=== PATIENT | female | born 1970 | race Caucasian/White ===

== ENCOUNTER → 2019-09-03 | Outpatient (CLI) | payer MEDICARE, OTHER, SELFPAY ==
[2019-09-03 14:47] LABS: BASOPHILS % (AUTO) 0.6 % (0.0-2.0); EOSINOPHILS % (AUTO) 0 % (1.0-6.0); HEMATOCRIT 43.5 % (36-46); HEMOGLOBIN 14.3 g/dL (12.0-16.0); MEAN CORPUSCULAR HEMOGLOBIN 29.5 pg (26.0-34.0); MEAN CORPUSCULAR HGB CONC 32.9 G/dL (31.0-37.0); MEAN CORPUSCULAR VOLUME 90 fL (80-100); MONOCYTES # (AUTO) 0.3 K/uL (0.1-1.0); MONOCYTES % (AUTO) 3.1 % (2.0-9.0); NEUTROPHILS # (AUTO) 6.1 K/uL (1.8-7.7); NEUTROPHILS % (AUTO) 72.3 % (40.0-70.0); PLATELET COUNT (AUTO) 201 K/uL (150-450); RED BLOOD CELL COUNT(AUTO) 4.85 MIL/uL (4.00-5.20); RED CELL DISTRIBUTION WIDTH 14.7 % (11.5-14.5)
== END | disposition home or self-care (01) ==
LOC: LABMN 11:55
PROVIDERS: ATTEND Psychiatry & Neurology Psychiatry
DX: F25.1 Schizoaffective disorder, depressive type (principal)

== ENCOUNTER → 2019-09-24 | Outpatient (CLI) | payer MEDICARE, OTHER, SELFPAY ==
[2019-09-24 18:43] LABS: BASOPHILS % (AUTO) 0.5 % (0.0-2.0); EOSINOPHILS % (AUTO) 0 % (1.0-6.0); HEMATOCRIT 40.1 % (36-46); HEMOGLOBIN 13.1 g/dL (12.0-16.0); LYMPHOCYTES % (AUTO) 16.6 % (22.0-44.0); MEAN CORPUSCULAR HEMOGLOBIN 29.8 pg (26.0-34.0); MEAN CORPUSCULAR HGB CONC 32.8 G/dL (31.0-37.0); MEAN CORPUSCULAR VOLUME 91 fL (80-100); MONOCYTES # (AUTO) 0.6 K/uL (0.1-1.0); MONOCYTES % (AUTO) 4.6 % (2.0-9.0); NEUTROPHILS # (AUTO) 9.5 K/uL (1.8-7.7); NEUTROPHILS % (AUTO) 78.3 % (40.0-70.0); PLATELET COUNT (AUTO) 223 K/uL (150-450); RED BLOOD CELL COUNT(AUTO) 4.42 MIL/uL (4.00-5.20); RED CELL DISTRIBUTION WIDTH 14.6 % (11.5-14.5)
== END | disposition home or self-care (01) ==
LOC: LABPV 11:30
PROVIDERS: ATTEND Psychiatry & Neurology Psychiatry
DX: F25.1 Schizoaffective disorder, depressive type (principal)

== ENCOUNTER → 2019-10-02 | Outpatient (CLI) | payer MEDICARE, OTHER | END | disposition home or self-care (01) | LOC: LABPV 13:52 | PROVIDERS: ATTEND Psychiatry & Neurology Psychiatry | DX: F25.0 Schizoaffective disorder, bipolar type (principal) | CPT/HCPCS: 80159 ==

== ENCOUNTER → 2019-10-23 | Outpatient (CLI) | payer MEDICARE, OTHER ==
[2019-10-23 14:00] LABS: BASOPHILS % (AUTO) 0.8 % (0.0-2.0); EOSINOPHILS % (AUTO) 0 % (1.0-6.0); HEMATOCRIT 40.8 % (36-46); HEMOGLOBIN 13.7 g/dL (12.0-16.0); LYMPHOCYTES % (AUTO) 20.6 % (22.0-44.0); MEAN CORPUSCULAR HEMOGLOBIN 30.2 pg (26.0-34.0); MEAN CORPUSCULAR HGB CONC 33.6 G/dL (31.0-37.0); MEAN CORPUSCULAR VOLUME 90 fL (80-100); MONOCYTES # (AUTO) 0.4 K/uL (0.1-1.0); NEUTROPHILS # (AUTO) 7.3 K/uL (1.8-7.7); NEUTROPHILS % (AUTO) 74.6 % (40.0-70.0); PLATELET COUNT (AUTO) 224 K/uL (150-450); RED BLOOD CELL COUNT(AUTO) 4.54 MIL/uL (4.00-5.20); RED CELL DISTRIBUTION WIDTH 13.6 % (11.5-14.5)
== END | disposition home or self-care (01) ==
LOC: LABMN 11:30
PROVIDERS: ATTEND Psychiatry & Neurology Psychiatry
DX: F25.1 Schizoaffective disorder, depressive type (principal)

== ENCOUNTER → 2019-11-19 | Outpatient (CLI) | payer MEDICARE, OTHER ==
[~2019-11-19] MED LIST: BENZ1TAB10 PO; CLOZ25TA5 PO; DEUT12TA PO; OLAN15TA18 PO; PALI234D IM; PALI6TAB15 PO
[2019-11-19 19:02] LABS: BASOPHILS % (AUTO) 0.6 % (0.0-2.0); EOSINOPHILS % (AUTO) 0 % (1.0-6.0); HEMATOCRIT 41.3 % (36-46); HEMOGLOBIN 13.9 g/dL (12.0-16.0); LYMPHOCYTES % (AUTO) 22.4 % (22.0-44.0); MEAN CORPUSCULAR HEMOGLOBIN 30.3 pg (26.0-34.0); MEAN CORPUSCULAR HGB CONC 33.6 G/dL (31.0-37.0); MEAN CORPUSCULAR VOLUME 90 fL (80-100); MONOCYTES # (AUTO) 0.4 K/uL (0.1-1.0); NEUTROPHILS # (AUTO) 6.4 K/uL (1.8-7.7); PLATELET COUNT (AUTO) 200 K/uL (150-450); RED BLOOD CELL COUNT(AUTO) 4.58 MIL/uL (4.00-5.20); RED CELL DISTRIBUTION WIDTH 14.1 % (11.5-14.5)
[2019-11-19 19:12] LABS: HEMOGLOBIN A1C 5.6 % (3.8-5.6)
== END | disposition home or self-care (01) ==
LOC: LABPV 14:36
PROVIDERS: ATTEND Psychiatry & Neurology Psychiatry
DX: F25.1 Schizoaffective disorder, depressive type (principal)
CPT/HCPCS: 80159; 82947; 83036

== ENCOUNTER 2020-01-20 10:23 | Inpatient (IN) | payer MEDICARE, MEDICAID ==
[~2020-01-20] VITALS: Ht 154.3 cm; Wt 99.1 kg
[~2020-01-20 10:23] MED LIST changes: -BENZ1TAB10 PO; +CLOZ100T31 PO; -CLOZ25TA5 PO; -DEUT12TA PO; +GABA-1201 PO; -OLAN15TA18 PO; +OMEG-135 PO; -PALI234D IM; -PALI6TAB15 PO
[2020-01-20 11:34] VITALS: BP 132/74
[2020-01-20] MEDS ORDERED: OLANZapine 5 MG RAPDIS TABLET PO PRN (12:30)
[2020-01-20] MEDS ORDERED: MAGNESIUM HYDROXIDE SUSPENSION 30 ML UDCUP PO PRN (12:30)
[2020-01-20] MEDS ORDERED: GuaiFENesin/D-METHORPHAN [SUGAR-FREE] 200-20MG/10 ML SYRUP UDCUP PO PRN (12:30)
[2020-01-20] MEDS ORDERED: ACETAMINOPHEN 325 MG TABLET PO PRN (12:30)
[2020-01-20] MEDS ORDERED: LOPERAMIDE HCL 2 MG CAPSULE PO PRN (12:30)
[2020-01-20] MEDS ORDERED: PROMETHAZINE HCL 25 MG TABLET PO PRN (12:30)
[2020-01-20] MEDS ORDERED: HydrOXYzine PAMOATE 50 MG CAPSULE PO PRN (12:30)
[2020-01-20] MEDS ORDERED: GABAPENTIN 300 MG CAPSULE PO PRN (12:30)
[2020-01-20] MEDS ORDERED: -PHARMACY VACCINE NOTE- MISC ONE (14:00)
[2020-01-20 14:14] LABS: COVID AG,FIA SOURCE NASOPHARYNGEAL
[2020-01-20] MEDS: GABAPENTIN 400 MG CAPSULE PO SCH ×2 (16:55→22:32)
[2020-01-20] MEDS: THIAMINE 100 MG TABLET PO SCH ×2 (16:55→22:32)
[2020-01-20 17:34] VITALS: BP 119/79
[2020-01-20] MEDS: ZOLPIDEM TARTRATE 10 MG TABLET PO PRN (21:50)
[2020-01-20] MEDS: CloZAPine 100 MG TABLET PO ONE (22:25)
[2020-01-20] MEDS: MIRTAZAPINE 15 MG TABLET PO SCH (22:25)
[2020-01-21 04:55] VITALS: BP 114/52
[2020-01-21 08:05] LABS: BASOPHILS % (AUTO) 0.5 % (0.0-2.0); EOSINOPHILS % (AUTO) 0 % (1.0-6.0); HEMATOCRIT 37.2 % (36-46); HEMOGLOBIN 12.5 g/dL (12.0-16.0); LYMPHOCYTES # (AUTO) 1.9 K/uL (1.0-4.8); LYMPHOCYTES % (AUTO) 23.7 % (22.0-44.0); MEAN CORPUSCULAR HGB CONC 33.6 G/dL (31.0-37.0); MEAN CORPUSCULAR VOLUME 89 fL (80-100); MONOCYTES # (AUTO) 0.4 K/uL (0.1-1.0); MONOCYTES % (AUTO) 5.6 % (2.0-9.0); NEUTROPHILS # (AUTO) 5.5 K/uL (1.8-7.7); NEUTROPHILS % (AUTO) 70.2 % (40.0-70.0); PLATELET COUNT (AUTO) 225 K/uL (150-450); RED BLOOD CELL COUNT(AUTO) 4.17 MIL/uL (4.00-5.20); RED CELL DISTRIBUTION WIDTH 14.5 % (11.5-14.5)
[2020-01-21 08:11] VITALS: BP 109/67
[2020-01-21 08:14] LABS: ALANINE AMINOTRANSFERASE 35 U/L (12-78); ALBUMIN 3.3 g/dL (3.4-5.0); ALKALINE PHOSPHATASE 88 U/L (46-116); ANION GAP 12 mmol/L (8-16); ASPARTATE AMINOTRANSFERASE 14 U/L (15-37); BILIRUBIN,TOTAL 0.4 mg/dL (0.1-1.0); CALCIUM, TOTAL 8.9 mg/dL (8.8-10.5); CARBON DIOXIDE 23 mmol/L (22-29); CHLORIDE 105 mmol/L (98-107); CHOL/HDL RATIO 3.3 (3.9-5.7); CHOLESTEROL 173 mg/dL (131-200); CREATININE 0.84 mg/dL (0.60-1.30); GLOMERULAR FILTR. RATE CALC > 60 mL/min (>60); GLUCOSE,RANDOM 93 mg/dL (70-110); HDL CHOLESTEROL 53 mg/dL (40-60); LDL CHOL (CALC.) 107 mg/dL (0-130); POTASSIUM 3.7 mmol/L (3.5-5.1); SODIUM SERUM 140 mmol/L (136-145); TOTAL PROTEIN, SERUM 6.7 g/dL (6.4-8.2); TRIGLYCERIDES 65 mg/dL (15-150); UREA NITROGEN, BLOOD 12 mg/dL (7-18)
[2020-01-21 08:55] LABS: HEMOGLOBIN A1C 5.3 % (3.8-5.6)
[2020-01-21] MEDS: OMEGA-3/DHA/EPA/FISH OIL 1,000 MG CAPSULE PO SCH (11:53)
[2020-01-21] MEDS: GABAPENTIN 400 MG CAPSULE PO SCH ×3 (11:54→16:31)
[2020-01-21] MEDS: THIAMINE 100 MG TABLET PO SCH ×2 (11:54→16:31)
[2020-01-21] MEDS: MULTIVITAMINS WITH MINERALS, THERAPEUTIC TABLET PO SCH (11:55)
[2020-01-21] MEDS: FOLIC ACID 1 MG TABLET PO SCH (11:56)
[2020-01-21 16:24] VITALS: BP 114/60
[2020-01-21] MEDS: CloZAPine 100 MG TABLET PO SCH (20:31)
[2020-01-21] MEDS: MIRTAZAPINE 15 MG TABLET PO SCH (20:31)
[2020-01-22 06:21] VITALS: BP 107/56
[2020-01-22 08:23] VITALS: BP 113/59
[2020-01-22] MEDS: OMEGA-3/DHA/EPA/FISH OIL 1,000 MG CAPSULE PO SCH (09:33)
[2020-01-22] MEDS: GABAPENTIN 400 MG CAPSULE PO SCH ×3 (09:34→17:13)
[2020-01-22] MEDS: MAG HYDROX/AL HYDROX/SIMETH ES 30 ML SUSPENSION UDCUP PO PRN (09:34)
[2020-01-22] MEDS: MULTIVITAMINS WITH MINERALS, THERAPEUTIC TABLET PO SCH (09:34)
[2020-01-22] MEDS: FOLIC ACID 1 MG TABLET PO SCH (09:34)
[2020-01-22] MEDS: THIAMINE 100 MG TABLET PO SCH ×2 (09:34→17:13)
[2020-01-22 16:48] VITALS: BP 119/57
[2020-01-22] MEDS: MIRTAZAPINE 15 MG TABLET PO SCH (20:35)
[2020-01-22] MEDS: CloZAPine 100 MG TABLET PO SCH (20:35)
[2020-01-22] MEDS: ZOLPIDEM TARTRATE 10 MG TABLET PO PRN (22:20)
[2020-01-23 00:07] VITALS: BP 122/78
[2020-01-23 08:13] VITALS: BP 119/73
[2020-01-23] MEDS: FOLIC ACID 1 MG TABLET PO SCH (09:07)
[2020-01-23] MEDS: THIAMINE 100 MG TABLET PO SCH ×2 (09:07→16:30)
[2020-01-23] MEDS: OMEGA-3/DHA/EPA/FISH OIL 1,000 MG CAPSULE PO SCH (09:08)
[2020-01-23] MEDS: GABAPENTIN 400 MG CAPSULE PO SCH ×3 (09:08→16:30)
[2020-01-23] MEDS: MULTIVITAMINS WITH MINERALS, THERAPEUTIC TABLET PO SCH (09:08)
[2020-01-23 16:35] VITALS: BP 112/64
[2020-01-23] MEDS: MIRTAZAPINE 15 MG TABLET PO SCH (20:32)
[2020-01-23] MEDS: CloZAPine 100 MG TABLET PO SCH (20:32)
[2020-01-24] VITALS: BP 116/62
[2020-01-24 08:21] VITALS: BP 113/62
[2020-01-24] MEDS: FOLIC ACID 1 MG TABLET PO SCH (08:55)
[2020-01-24] MEDS: GABAPENTIN 400 MG CAPSULE PO SCH ×2 (08:55→12:28)
[2020-01-24] MEDS: OMEGA-3/DHA/EPA/FISH OIL 1,000 MG CAPSULE PO SCH (08:55)
[2020-01-24] MEDS: THIAMINE 100 MG TABLET PO SCH ×2 (08:55→16:42)
[2020-01-24] MEDS: MULTIVITAMINS WITH MINERALS, THERAPEUTIC TABLET PO SCH (08:55)
[2020-01-24] MEDS: MAG HYDROX/AL HYDROX/SIMETH ES 30 ML SUSPENSION UDCUP PO PRN (09:32)
[2020-01-24 16:42] VITALS: BP 113/68
[2020-01-24] MEDS: GABAPENTIN 300 MG CAPSULE PO SCH (16:44)
[2020-01-24] MEDS: CloZAPine 100 MG TABLET PO SCH (20:33)
[2020-01-24] MEDS: MIRTAZAPINE 15 MG TABLET PO SCH (20:33)
[2020-01-25 05:27] VITALS: BP 110/71
[2020-01-25 08:28] VITALS: BP 114/69
[2020-01-25] MEDS: OMEGA-3/DHA/EPA/FISH OIL 1,000 MG CAPSULE PO SCH (09:47)
[2020-01-25] MEDS: FOLIC ACID 1 MG TABLET PO SCH (09:47)
[2020-01-25] MEDS: MULTIVITAMINS WITH MINERALS, THERAPEUTIC TABLET PO SCH (09:47)
[2020-01-25] MEDS: THIAMINE 100 MG TABLET PO SCH ×2 (09:48→17:10)
[2020-01-25] MEDS: GABAPENTIN 300 MG CAPSULE PO SCH ×3 (09:48→17:10)
[2020-01-25 16:25] VITALS: BP 123/60
[2020-01-25] MEDS: MIRTAZAPINE 15 MG TABLET PO SCH (21:10)
[2020-01-25] MEDS: CloZAPine 100 MG TABLET PO SCH (21:10)
[2020-01-26 01:03] VITALS: BP 118/66
[2020-01-26 08:30] VITALS: BP 115/62
[2020-01-26] MEDS: GABAPENTIN 300 MG CAPSULE PO SCH ×3 (08:57→16:50)
[2020-01-26] MEDS: FOLIC ACID 1 MG TABLET PO SCH (08:57)
[2020-01-26] MEDS: THIAMINE 100 MG TABLET PO SCH ×2 (08:57→16:50)
[2020-01-26] MEDS: OMEGA-3/DHA/EPA/FISH OIL 1,000 MG CAPSULE PO SCH (08:57)
[2020-01-26] MEDS: MULTIVITAMINS WITH MINERALS, THERAPEUTIC TABLET PO SCH (08:57)
[2020-01-26 17:20] VITALS: BP 106/70
[2020-01-26] MEDS: MIRTAZAPINE 15 MG TABLET PO SCH (20:22)
[2020-01-26] MEDS: CloZAPine 100 MG TABLET PO SCH (20:22)
[2020-01-26] MEDS: DOCUSATE SODIUM 250 MG CAPSULE PO SCH (20:22)
[2020-01-27 05:12] VITALS: BP 120/75
[2020-01-27 08:12] VITALS: BP 110/64
[2020-01-27] MEDS: THIAMINE 100 MG TABLET PO SCH ×2 (09:42→16:35)
[2020-01-27] MEDS: OMEGA-3/DHA/EPA/FISH OIL 1,000 MG CAPSULE PO SCH (09:42)
[2020-01-27] MEDS: MULTIVITAMINS WITH MINERALS, THERAPEUTIC TABLET PO SCH (09:42)
[2020-01-27] MEDS: FOLIC ACID 1 MG TABLET PO SCH (09:42)
[2020-01-27] MEDS: GABAPENTIN 300 MG CAPSULE PO SCH ×3 (09:42→16:35)
[2020-01-27 16:29] VITALS: BP 110/60
[2020-01-27] MEDS: CloZAPine 100 MG TABLET PO SCH (20:32)
[2020-01-27] MEDS: MIRTAZAPINE 15 MG TABLET PO SCH (20:32)
[2020-01-27] MEDS: DOCUSATE SODIUM 250 MG CAPSULE PO SCH (20:32)
[2020-01-28 08:56] VITALS: BP 121/82
[2020-01-28] MEDS: MULTIVITAMINS WITH MINERALS, THERAPEUTIC TABLET PO SCH (08:56)
[2020-01-28] MEDS: CloZAPine 100 MG TABLET PO SCH ×2 (08:57→20:10)
[2020-01-28] MEDS: FOLIC ACID 1 MG TABLET PO SCH (08:57)
[2020-01-28] MEDS: OMEGA-3/DHA/EPA/FISH OIL 1,000 MG CAPSULE PO SCH (08:57)
[2020-01-28] MEDS: THIAMINE 100 MG TABLET PO SCH ×2 (08:57→16:19)
[2020-01-28] MEDS: GABAPENTIN 300 MG CAPSULE PO SCH ×3 (08:57→16:19)
[2020-01-28] MEDS ORDERED: GABA-1181 PO (15:11)
[2020-01-28] MEDS ORDERED: MIRT-89 PO (15:11)
[2020-01-28] MEDS ORDERED: CLOZ100T31 PO ×2 (15:11)
[2020-01-28] MEDS ORDERED: OMEG-135 PO (15:11)
[2020-01-28 16:22] VITALS: BP 132/73
[2020-01-28] MEDS: DOCUSATE SODIUM 250 MG CAPSULE PO SCH (20:11)
[2020-01-28] MEDS: MIRTAZAPINE 15 MG TABLET PO SCH (20:11)
[2020-01-29 05:09] VITALS: BP 126/84
[2020-01-29 07:28] LABS: BASOPHILS % (AUTO) 0.9 % (0.0-2.0); EOSINOPHILS % (AUTO) 0.1 % (1.0-6.0); HEMATOCRIT 39.1 % (36-46); LYMPHOCYTES # (AUTO) 2.3 K/uL (1.0-4.8); LYMPHOCYTES % (AUTO) 29.1 % (22.0-44.0); MEAN CORPUSCULAR HGB CONC 33.3 G/dL (31.0-37.0); MEAN CORPUSCULAR VOLUME 90 fL (80-100); MONOCYTES # (AUTO) 0.5 K/uL (0.1-1.0); MONOCYTES % (AUTO) 6.3 % (2.0-9.0); NEUTROPHILS % (AUTO) 63.6 % (40.0-70.0); PLATELET COUNT (AUTO) 209 K/uL (150-450); RED BLOOD CELL COUNT(AUTO) 4.34 MIL/uL (4.00-5.20)
[2020-01-29 08:41] VITALS: BP 115/62
[2020-01-29] MEDS: FOLIC ACID 1 MG TABLET PO SCH (08:59)
[2020-01-29] MEDS: OMEGA-3/DHA/EPA/FISH OIL 1,000 MG CAPSULE PO SCH (08:59)
[2020-01-29] MEDS: GABAPENTIN 300 MG CAPSULE PO SCH (08:59)
[2020-01-29] MEDS: MULTIVITAMINS WITH MINERALS, THERAPEUTIC TABLET PO SCH (08:59)
[2020-01-29] MEDS: THIAMINE 100 MG TABLET PO SCH (08:59)
[2020-01-29] MEDS: CloZAPine 100 MG TABLET PO SCH (08:59)
[2020-01-29] MEDS: MAG HYDROX/AL HYDROX/SIMETH ES 30 ML SUSPENSION UDCUP PO PRN (09:03)
[2020-01-29] MEDS ORDERED: GABA-1181 PO (09:41)
== END 2020-01-29 14:18 | disposition home or self-care (01) | DRG 885 ==
LOC: B3A 12:46 → B2X 17:29
PROVIDERS: ADMIT Psychiatry & Neurology Psychiatry; ATTEND Psychiatry & Neurology Psychiatry
DX: F25.9 Schizoaffective disorder, unspecified (principal); E66.01 Morbid (severe) obesity due to excess calories; Z20.828 Contact with and (suspected) exposure to other viral communicable diseases; Z55.9 Problems related to education and literacy, unspecified; Z59.9 Problem related to housing and economic circumstances, unspecified
CPT/HCPCS: 80159; 83036; 87081; 87426

== ENCOUNTER → 2020-02-26 | Outpatient (CLI) | payer MEDICARE, MEDICAID ==
[~2020-02-26] MED LIST changes: +GABA-1181 PO; -GABA-1201 PO; +MIRT-89 PO
[2020-02-26 18:13] LABS: BASOPHILS % (AUTO) 0.6 % (0.0-2.0); EOSINOPHILS % (AUTO) 0 % (1.0-6.0); HEMATOCRIT 41.3 % (36-46); HEMOGLOBIN 13.4 g/dL (12.0-16.0); LYMPHOCYTES # (AUTO) 2.2 K/uL (1.0-4.8); LYMPHOCYTES % (AUTO) 23.4 % (22.0-44.0); MEAN CORPUSCULAR HEMOGLOBIN 29.4 pg (26.0-34.0); MEAN CORPUSCULAR HGB CONC 32.4 G/dL (31.0-37.0); MEAN CORPUSCULAR VOLUME 91 fL (80-100); MONOCYTES # (AUTO) 0.3 K/uL (0.1-1.0); MONOCYTES % (AUTO) 3.7 % (2.0-9.0); NEUTROPHILS # (AUTO) 6.8 K/uL (1.8-7.7); NEUTROPHILS % (AUTO) 72.3 % (40.0-70.0); PLATELET COUNT (AUTO) 263 K/uL (150-450); RED BLOOD CELL COUNT(AUTO) 4.55 MIL/uL (4.00-5.20); RED CELL DISTRIBUTION WIDTH 14.7 % (11.5-14.5)
== END | disposition home or self-care (01) ==
LOC: LABPV 12:57
PROVIDERS: ATTEND Psychiatry & Neurology Psychiatry
DX: F25.1 Schizoaffective disorder, depressive type (principal)
CPT/HCPCS: 80159

== ENCOUNTER → 2020-05-12 | Outpatient (CLI) | payer MEDICARE, MEDICAID ==
[~2020-05-12] MED LIST changes: +CLOZ100T32 PO; -GABA-1181 PO; +GABA-1201 PO; +MELA5TAB3 PO; -MIRT-89 PO; +MIRT30 PO
[2020-05-12 21:13] LABS: BASOPHILS % (AUTO) 0.3 % (0.0-2.0); EOSINOPHILS % (AUTO) 0 % (1.0-6.0); HEMATOCRIT 42.4 % (36-46); HEMOGLOBIN 13.7 g/dL (12.0-16.0); LYMPHOCYTES # (AUTO) 1.8 K/uL (1.0-4.8); LYMPHOCYTES % (AUTO) 12.2 % (22.0-44.0); MEAN CORPUSCULAR HEMOGLOBIN 28.7 pg (26.0-34.0); MEAN CORPUSCULAR HGB CONC 32.4 G/dL (31.0-37.0); MEAN CORPUSCULAR VOLUME 89 fL (80-100); MONOCYTES # (AUTO) 0.6 K/uL (0.1-1.0); MONOCYTES % (AUTO) 3.7 % (2.0-9.0); NEUTROPHILS # (AUTO) 12.5 K/uL (1.8-7.7); NEUTROPHILS % (AUTO) 83.8 % (40.0-70.0); PLATELET COUNT (AUTO) 260 K/uL (150-450); RED BLOOD CELL COUNT(AUTO) 4.77 MIL/uL (4.00-5.20); RED CELL DISTRIBUTION WIDTH 15.1 % (11.5-14.5)
== END | disposition home or self-care (01) ==
LOC: RADMN 12:22
PROVIDERS: ATTEND Psychiatry & Neurology Psychiatry
DX: F25.1 Schizoaffective disorder, depressive type (principal)
CPT/HCPCS: 80159

== ENCOUNTER → 2020-10-27 | Outpatient (CLI) | payer MEDICARE, MEDICAID ==
[~2020-10-27] MED LIST changes: -CLOZ100T32 PO; +GABA-1181 PO; -MELA5TAB3 PO; +MELA5TAB40 PO; +MIRT-89 PO; +OLAN5TAB30 PO
[2020-10-27 14:39] LABS: BASOPHILS % (AUTO) 0.4 % (0.0-2.0); EOSINOPHILS % (AUTO) 0 % (1.0-6.0); HEMOGLOBIN 13.2 g/dL (12.0-16.0); LYMPHOCYTES # (AUTO) 1.5 K/uL (1.0-4.8); LYMPHOCYTES % (AUTO) 18.4 % (22.0-44.0); MEAN CORPUSCULAR HEMOGLOBIN 28.5 pg (26.0-34.0); MEAN CORPUSCULAR HGB CONC 32.2 G/dL (31.0-37.0); MEAN CORPUSCULAR VOLUME 89 fL (80-100); MONOCYTES # (AUTO) 0.2 K/uL (0.1-1.0); NEUTROPHILS # (AUTO) 6.5 K/uL (1.8-7.7); NEUTROPHILS % (AUTO) 78.2 % (40.0-70.0); PLATELET COUNT (AUTO) 205 K/uL (150-450); RED BLOOD CELL COUNT(AUTO) 4.62 MIL/uL (4.00-5.20); RED CELL DISTRIBUTION WIDTH 15.1 % (11.5-14.5)
== END | disposition home or self-care (01) ==
LOC: LABPV 13:31
PROVIDERS: ATTEND Psychiatry & Neurology Psychiatry
DX: F25.1 Schizoaffective disorder, depressive type (principal)
CPT/HCPCS: 80159; 85025

== ENCOUNTER 2020-11-20 10:59 | Inpatient (IN) | payer OTHER, MEDICAID ==
[~2020-11-20] VITALS: Ht 177.8 cm; Wt 95.1 kg
[2020-11-20 12:43] VITALS: BP 136/79
[2020-11-20] MEDS ORDERED: PROMETHAZINE HCL 25 MG TABLET PO PRN (13:45)
[2020-11-20] MEDS ORDERED: LOPERAMIDE HCL 2 MG CAPSULE PO PRN (13:45)
[2020-11-20] MEDS ORDERED: HydrOXYzine PAMOATE 50 MG CAPSULE PO PRN (13:45)
[2020-11-20] MEDS ORDERED: OLANZapine 5 MG RAPDIS TABLET PO PRN (13:45)
[2020-11-20] MEDS ORDERED: MAGNESIUM HYDROXIDE SUSPENSION 30 ML UDCUP PO PRN (13:45)
[2020-11-20] MEDS ORDERED: MAG HYDROX/AL HYDROX/SIMETH ES 30 ML SUSPENSION UDCUP PO PRN (13:45)
[2020-11-20] MEDS ORDERED: GuaiFENesin/D-METHORPHAN [SUGAR-FREE] 200-20MG/10 ML SYRUP UDCUP PO PRN (13:45)
[2020-11-20] MEDS ORDERED: GABAPENTIN 300 MG CAPSULE PO PRN (13:45)
[2020-11-20] MEDS ORDERED: ACETAMINOPHEN 325 MG TABLET PO PRN (13:45)
[2020-11-20 13:52] LABS: GLUCOMETER DEV NAME(LOC) POC.BV
[2020-11-20 14:51] VITALS: BP 114/60
[2020-11-20 16:19] VITALS: BP 114/60
[2020-11-20] MEDS: THIAMINE 100 MG TABLET PO SCH (16:57)
[2020-11-20] MEDS: MIRTAZAPINE 30 MG TABLET PO SCH (20:55)
[2020-11-20] MEDS: MELATONIN 5 MG TABLET PO SCH (20:58)
[2020-11-20] MEDS ORDERED: CloZAPine 100 MG TABLET PO ONE (21:00)
[2020-11-21 06:03] VITALS: BP 112/61
[2020-11-21 06:44] LABS: BASOPHILS % (AUTO) 0.6 % (0.0-2.0); EOSINOPHILS % (AUTO) 0 % (1.0-6.0); HEMOGLOBIN 12.9 g/dL (12.0-16.0); LYMPHOCYTES # (AUTO) 2.1 K/uL (1.0-4.8); LYMPHOCYTES % (AUTO) 28.1 % (22.0-44.0); MEAN CORPUSCULAR HEMOGLOBIN 28.9 pg (26.0-34.0); MEAN CORPUSCULAR HGB CONC 33.1 G/dL (31.0-37.0); MEAN CORPUSCULAR VOLUME 87 fL (80-100); MONOCYTES # (AUTO) 0.4 K/uL (0.1-1.0); MONOCYTES % (AUTO) 5.8 % (2.0-9.0); NEUTROPHILS # (AUTO) 4.9 K/uL (1.8-7.7); NEUTROPHILS % (AUTO) 65.5 % (40.0-70.0); PLATELET COUNT (AUTO) 206 K/uL (150-450); RED BLOOD CELL COUNT(AUTO) 4.46 MIL/uL (4.00-5.20); RED CELL DISTRIBUTION WIDTH 14.6 % (11.5-14.5)
[2020-11-21 07:00] LABS: HEMOGLOBIN A1C 5.5 % (3.8-5.6)
[2020-11-21 07:12] LABS: ALBUMIN 3.2 g/dL (3.4-5.0); BILIRUBIN,TOTAL 0.2 mg/dL (0.1-1.0); CALCIUM, TOTAL 8.3 mg/dL (8.8-10.5); CHOL/HDL RATIO 2.8 (3.9-5.7); CREATININE 1.07 mg/dL (0.60-1.30); FREE T4 (FREE THYROXINE) 0.99 ng/dL (0.76-1.46); POTASSIUM 4.2 mmol/L (3.5-5.1); THYROID STIMULATING HORMONE 1.99 uIU/mL (0.36-3.74); TOTAL PROTEIN, SERUM 6.9 g/dL (6.4-8.2)
[2020-11-21 08:19] VITALS: BP 106/67
[2020-11-21] MEDS: FOLIC ACID 1 MG TABLET PO SCH (09:18)
[2020-11-21] MEDS: THIAMINE 100 MG TABLET PO SCH ×2 (09:18→16:52)
[2020-11-21] MEDS: MULTIVITAMINS WITH MINERALS, THERAPEUTIC TABLET PO SCH (09:19)
[2020-11-21] MEDS: CloZAPine 100 MG TABLET PO SCH ×2 (11:09→20:35)
[2020-11-21 16:14] VITALS: BP 103/60
[2020-11-21] MEDS: MELATONIN 5 MG TABLET PO SCH (20:35)
[2020-11-21] MEDS: MIRTAZAPINE 30 MG TABLET PO SCH (20:35)
[2020-11-22 04:39] VITALS: BP 104/58
[2020-11-22 08:14] VITALS: BP 108/71
[2020-11-22] MEDS: FOLIC ACID 1 MG TABLET PO SCH (09:54)
[2020-11-22] MEDS: THIAMINE 100 MG TABLET PO SCH ×2 (09:54→16:37)
[2020-11-22] MEDS: MULTIVITAMINS WITH MINERALS, THERAPEUTIC TABLET PO SCH (09:54)
[2020-11-22] MEDS: CloZAPine 100 MG TABLET PO SCH ×2 (09:54→20:34)
[2020-11-22 16:08] VITALS: BP 99/67
[2020-11-22] MEDS: MIRTAZAPINE 30 MG TABLET PO SCH (20:33)
[2020-11-22] MEDS: MELATONIN 5 MG TABLET PO SCH (20:33)
[2020-11-23 05:41] VITALS: BP 108/63
[2020-11-23 08:15] VITALS: BP 119/64
[2020-11-23] MEDS: FOLIC ACID 1 MG TABLET PO SCH (09:16)
[2020-11-23] MEDS: MULTIVITAMINS WITH MINERALS, THERAPEUTIC TABLET PO SCH (09:16)
[2020-11-23] MEDS: THIAMINE 100 MG TABLET PO SCH ×2 (09:16→16:31)
[2020-11-23] MEDS: CloZAPine 100 MG TABLET PO SCH ×2 (09:16→20:31)
[2020-11-23 16:20] VITALS: BP 108/66
[2020-11-23] MEDS: MELATONIN 5 MG TABLET PO SCH (20:30)
[2020-11-23] MEDS: MIRTAZAPINE 30 MG TABLET PO SCH (20:31)
[2020-11-24 01:00] VITALS: BP 111/63
[2020-11-24 08:13] VITALS: BP 133/61
[2020-11-24] MEDS: THIAMINE 100 MG TABLET PO SCH ×2 (08:49→16:38)
[2020-11-24] MEDS: MULTIVITAMINS WITH MINERALS, THERAPEUTIC TABLET PO SCH (08:49)
[2020-11-24] MEDS: FOLIC ACID 1 MG TABLET PO SCH (08:50)
[2020-11-24] MEDS: CloZAPine 100 MG TABLET PO SCH ×2 (08:50→20:31)
[2020-11-24] MEDS: LORazepam 2 MG TABLET PO PRN (12:51)
[2020-11-24 16:19] VITALS: BP 115/76
[2020-11-24] MEDS: MIRTAZAPINE 30 MG TABLET PO SCH (20:31)
[2020-11-24] MEDS: MELATONIN 5 MG TABLET PO SCH (20:31)
[2020-11-25 00:33] VITALS: BP 100/63
[2020-11-25 08:09] VITALS: BP 112/66
[2020-11-25 08:40] LABS: AMPHET/METH SCREEN,URINE NEGATIVE (NEGATIVE); BARBITURATE SCREEN, URINE NEGATIVE (NEGATIVE); BENZODIAZEPINES SCREEN,URINE NEGATIVE (NEGATIVE); CANNABINOID SCREEN,URINE NEGATIVE (NEGATIVE); COCAINE SCREEN,URINE NEGATIVE (NEGATIVE); METHADONE SCREEN, URINE NEGATIVE (NEGATIVE); OPIATE SCREEN,URINE NEGATIVE (NEGATIVE)
[2020-11-25 08:41] LABS: PHENCYCLIDINE SCREEN,URINE NEGATIVE (NEGATIVE)
[2020-11-25] MEDS: CloZAPine 100 MG TABLET PO SCH ×2 (09:22→20:36)
[2020-11-25] MEDS: THIAMINE 100 MG TABLET PO SCH ×2 (09:22→16:52)
[2020-11-25] MEDS: MULTIVITAMINS WITH MINERALS, THERAPEUTIC TABLET PO SCH (09:22)
[2020-11-25] MEDS: FOLIC ACID 1 MG TABLET PO SCH (09:22)
[2020-11-25 16:10] VITALS: BP 119/73
[2020-11-25] MEDS: MELATONIN 5 MG TABLET PO SCH (20:36)
[2020-11-25] MEDS: MIRTAZAPINE 30 MG TABLET PO SCH (20:36)
[2020-11-26 01:35] VITALS: BP 116/68
[2020-11-26 08:10] LABS: COVID AG,FIA SOURCE NASOPHARYNGEAL
[2020-11-26 08:26] VITALS: BP 101/60
[2020-11-26] MEDS: CloZAPine 100 MG TABLET PO SCH ×2 (09:15→20:29)
[2020-11-26] MEDS: THIAMINE 100 MG TABLET PO SCH ×2 (09:15→16:38)
[2020-11-26] MEDS: MULTIVITAMINS WITH MINERALS, THERAPEUTIC TABLET PO SCH (09:15)
[2020-11-26] MEDS: FOLIC ACID 1 MG TABLET PO SCH (09:15)
[2020-11-26 16:20] VITALS: BP 121/74
[2020-11-26] MEDS: MIRTAZAPINE 30 MG TABLET PO SCH (20:29)
[2020-11-26] MEDS: MELATONIN 5 MG TABLET PO SCH (20:30)
[2020-11-27 06:47] VITALS: BP 114/70
[2020-11-27 08:32] VITALS: BP 115/73
[2020-11-27] MEDS: THIAMINE 100 MG TABLET PO SCH ×2 (10:01→16:04)
[2020-11-27] MEDS: FOLIC ACID 1 MG TABLET PO SCH (10:01)
[2020-11-27] MEDS: MULTIVITAMINS WITH MINERALS, THERAPEUTIC TABLET PO SCH (10:01)
[2020-11-27] MEDS: CloZAPine 100 MG TABLET PO SCH ×2 (10:03→20:21)
[2020-11-27] MEDS: LITHIUM CARBONATE 300 MG CAPSULE PO SCH (16:05)
[2020-11-27 16:13] VITALS: BP 101/73
[2020-11-27] MEDS: MIRTAZAPINE 30 MG TABLET PO SCH (20:21)
[2020-11-27] MEDS: MELATONIN 5 MG TABLET PO SCH (20:22)
[2020-11-28] MEDS: ZOLPIDEM TARTRATE 10 MG TABLET PO PRN (00:18)
[2020-11-28 00:38] VITALS: BP 113/62
[2020-11-28] MEDS: LITHIUM CARBONATE 300 MG CAPSULE PO SCH ×3 (06:41→16:14)
[2020-11-28 08:06] VITALS: BP 102/70
[2020-11-28] MEDS: THIAMINE 100 MG TABLET PO SCH ×2 (10:21→16:14)
[2020-11-28] MEDS: FOLIC ACID 1 MG TABLET PO SCH (10:21)
[2020-11-28] MEDS: MULTIVITAMINS WITH MINERALS, THERAPEUTIC TABLET PO SCH (10:21)
[2020-11-28] MEDS: CloZAPine 100 MG TABLET PO SCH ×2 (10:21→20:05)
[2020-11-28 10:42] LABS: BASOPHILS % (AUTO) 0.4 % (0.0-2.0); EOSINOPHILS % (AUTO) 0 % (1.0-6.0); HEMOGLOBIN 13.8 g/dL (12.0-16.0); LYMPHOCYTES # (AUTO) 2.9 K/uL (1.0-4.8); LYMPHOCYTES % (AUTO) 30.5 % (22.0-44.0); MEAN CORPUSCULAR HEMOGLOBIN 28.4 pg (26.0-34.0); MEAN CORPUSCULAR VOLUME 89 fL (80-100); MONOCYTES # (AUTO) 0.4 K/uL (0.1-1.0); NEUTROPHILS # (AUTO) 6.2 K/uL (1.8-7.7); NEUTROPHILS % (AUTO) 65.1 % (40.0-70.0); PLATELET COUNT (AUTO) 255 K/uL (150-450); RED BLOOD CELL COUNT(AUTO) 4.85 MIL/uL (4.00-5.20); RED CELL DISTRIBUTION WIDTH 14.9 % (11.5-14.5)
[2020-11-28 16:09] VITALS: BP 104/77
[2020-11-28] MEDS: MIRTAZAPINE 30 MG TABLET PO SCH (20:05)
[2020-11-28] MEDS: MELATONIN 5 MG TABLET PO SCH (20:05)
[2020-11-29 01:10] VITALS: BP 115/65
[2020-11-29] MEDS: LITHIUM CARBONATE 300 MG CAPSULE PO SCH ×3 (06:49→16:33)
[2020-11-29 08:13] VITALS: BP 140/82
[2020-11-29] MEDS: CloZAPine 100 MG TABLET PO SCH ×2 (08:48→20:08)
[2020-11-29] MEDS: THIAMINE 100 MG TABLET PO SCH ×2 (08:48→16:33)
[2020-11-29] MEDS: FOLIC ACID 1 MG TABLET PO SCH (08:48)
[2020-11-29] MEDS: MULTIVITAMINS WITH MINERALS, THERAPEUTIC TABLET PO SCH (08:48)
[2020-11-29 16:06] VITALS: BP 107/67
[2020-11-29] MEDS: MIRTAZAPINE 30 MG TABLET PO SCH (20:07)
[2020-11-29] MEDS: MELATONIN 5 MG TABLET PO SCH (20:08)
[2020-11-30 02:32] VITALS: BP 108/60
[2020-11-30] MEDS: LITHIUM CARBONATE 300 MG CAPSULE PO SCH ×3 (06:56→16:35)
[2020-11-30 08:47] VITALS: BP 133/63
[2020-11-30] MEDS: THIAMINE 100 MG TABLET PO SCH (09:34)
[2020-11-30] MEDS: FOLIC ACID 1 MG TABLET PO SCH (09:34)
[2020-11-30] MEDS: MULTIVITAMINS WITH MINERALS, THERAPEUTIC TABLET PO SCH (09:34)
[2020-11-30] MEDS: CloZAPine 100 MG TABLET PO SCH ×2 (09:34→20:35)
[2020-11-30 16:11] VITALS: BP 131/68
[2020-11-30] MEDS: MELATONIN 5 MG TABLET PO SCH (20:34)
[2020-11-30] MEDS: MIRTAZAPINE 30 MG TABLET PO SCH (20:35)
[2020-12-01 00:07] VITALS: BP 112/65
[2020-12-01] MEDS: LITHIUM CARBONATE 300 MG CAPSULE PO SCH ×3 (06:28→16:39)
[2020-12-01 08:18] VITALS: BP 110/60
[2020-12-01] MEDS: MULTIVITAMINS WITH MINERALS, THERAPEUTIC TABLET PO SCH (09:22)
[2020-12-01] MEDS: CloZAPine 100 MG TABLET PO SCH ×2 (09:22→20:35)
[2020-12-01 16:14] VITALS: BP 103/62
[2020-12-01] MEDS: MELATONIN 5 MG TABLET PO SCH (20:35)
[2020-12-01] MEDS: MIRTAZAPINE 30 MG TABLET PO SCH (20:35)
[2020-12-02 04:57] VITALS: BP 106/51
[2020-12-02] MEDS: LITHIUM CARBONATE 300 MG CAPSULE PO SCH ×3 (06:34→16:32)
[2020-12-02] MEDS: CloZAPine 100 MG TABLET PO SCH ×2 (08:28→20:35)
[2020-12-02] MEDS: MULTIVITAMINS WITH MINERALS, THERAPEUTIC TABLET PO SCH (08:28)
[2020-12-02 09:06] VITALS: BP 96/50
[2020-12-02 16:15] VITALS: BP 131/75
[2020-12-02] MEDS: MELATONIN 5 MG TABLET PO SCH (20:34)
[2020-12-02] MEDS: MIRTAZAPINE 30 MG TABLET PO SCH (20:35)
[2020-12-03 06:23] VITALS: BP 106/62
[2020-12-03] MEDS: LITHIUM CARBONATE 300 MG CAPSULE PO SCH ×3 (07:18→17:03)
[2020-12-03 08:01] LABS: COVID AG,FIA SOURCE NASOPHARYNGEAL
[2020-12-03 08:44] VITALS: BP 108/44
[2020-12-03] MEDS: MULTIVITAMINS WITH MINERALS, THERAPEUTIC TABLET PO SCH (09:14)
[2020-12-03] MEDS: CloZAPine 100 MG TABLET PO SCH ×2 (09:14→21:05)
[2020-12-03 16:16] VITALS: BP 115/60
[2020-12-03] MEDS: MIRTAZAPINE 30 MG TABLET PO SCH (21:05)
[2020-12-03] MEDS: MELATONIN 5 MG TABLET PO SCH (21:05)
[2020-12-04 01:14] VITALS: BP 105/60
[2020-12-04] MEDS: LITHIUM CARBONATE 300 MG CAPSULE PO SCH ×3 (06:46→16:39)
[2020-12-04] MEDS: CloZAPine 100 MG TABLET PO SCH ×2 (08:29→20:23)
[2020-12-04] MEDS: MULTIVITAMINS WITH MINERALS, THERAPEUTIC TABLET PO SCH (08:29)
[2020-12-04 08:45] VITALS: BP 108/65
[2020-12-04 16:20] VITALS: BP 120/65
[2020-12-04] MEDS: MELATONIN 5 MG TABLET PO SCH (20:23)
[2020-12-04] MEDS: MIRTAZAPINE 30 MG TABLET PO SCH (20:24)
[2020-12-05 01:35] VITALS: BP 101/60
[2020-12-05] MEDS: LITHIUM CARBONATE 300 MG CAPSULE PO SCH ×3 (06:48→16:56)
[2020-12-05 07:47] LABS: BASOPHILS % (AUTO) 0.4 % (0.0-2.0); EOSINOPHILS % (AUTO) 0 % (1.0-6.0); HEMOGLOBIN 12.5 g/dL (12.0-16.0); LYMPHOCYTES # (AUTO) 2.1 K/uL (1.0-4.8); LYMPHOCYTES % (AUTO) 24.3 % (22.0-44.0); MEAN CORPUSCULAR HEMOGLOBIN 29.1 pg (26.0-34.0); MEAN CORPUSCULAR HGB CONC 32.8 G/dL (31.0-37.0); MEAN CORPUSCULAR VOLUME 89 fL (80-100); MONOCYTES # (AUTO) 0.4 K/uL (0.1-1.0); MONOCYTES % (AUTO) 5.1 % (2.0-9.0); NEUTROPHILS # (AUTO) 6.2 K/uL (1.8-7.7); NEUTROPHILS % (AUTO) 70.2 % (40.0-70.0); PLATELET COUNT (AUTO) 213 K/uL (150-450); RED CELL DISTRIBUTION WIDTH 15.3 % (11.5-14.5)
[2020-12-05] MEDS: MULTIVITAMINS WITH MINERALS, THERAPEUTIC TABLET PO SCH (09:43)
[2020-12-05] MEDS: CloZAPine 100 MG TABLET PO SCH ×2 (09:44→20:44)
[2020-12-05 16:07] VITALS: BP 120/67
[2020-12-05] MEDS: MIRTAZAPINE 30 MG TABLET PO SCH (20:44)
[2020-12-05] MEDS: MELATONIN 5 MG TABLET PO SCH (20:44)
[2020-12-05] MEDS: ZOLPIDEM TARTRATE 10 MG TABLET PO PRN (21:57)
[2020-12-06 05:38] VITALS: BP 111/60
[2020-12-06] MEDS: LITHIUM CARBONATE 300 MG CAPSULE PO SCH ×3 (06:48→16:39)
[2020-12-06 08:11] VITALS: BP 104/57
[2020-12-06] MEDS: CloZAPine 100 MG TABLET PO SCH ×2 (09:04→20:40)
[2020-12-06] MEDS: MULTIVITAMINS WITH MINERALS, THERAPEUTIC TABLET PO SCH (09:04)
[2020-12-06 09:19] VITALS: BP 106/58
[2020-12-06 16:36] VITALS: BP 125/65
[2020-12-06] MEDS: MIRTAZAPINE 30 MG TABLET PO SCH (20:39)
[2020-12-06] MEDS: MELATONIN 5 MG TABLET PO SCH (20:40)
[2020-12-06] MEDS: LORazepam 2 MG TABLET PO PRN (23:18)
[2020-12-06] MEDS: ZOLPIDEM TARTRATE 10 MG TABLET PO PRN (23:18)
[2020-12-07 01:21] VITALS: BP 116/62
[2020-12-07] MEDS: LITHIUM CARBONATE 300 MG CAPSULE PO SCH ×3 (06:35→16:21)
[2020-12-07] MEDS: CloZAPine 100 MG TABLET PO SCH ×2 (08:43→20:17)
[2020-12-07 08:45] VITALS: BP 111/61
[2020-12-07 08:46] VITALS: BP 110/60
[2020-12-07] MEDS: MULTIVITAMINS WITH MINERALS, THERAPEUTIC TABLET PO SCH (09:00)
[2020-12-07 16:17] VITALS: BP 117/63
[2020-12-07] MEDS: MELATONIN 5 MG TABLET PO SCH (20:15)
[2020-12-07] MEDS: MIRTAZAPINE 30 MG TABLET PO SCH (20:16)
[2020-12-07] MEDS: CloZAPine 25 MG TABLET PO SCH (20:23)
[2020-12-07] MEDS: ZOLPIDEM TARTRATE 10 MG TABLET PO PRN (21:52)
[2020-12-08 04:05] VITALS: BP 119/73
[2020-12-08] MEDS: LITHIUM CARBONATE 300 MG CAPSULE PO SCH ×3 (06:37→17:14)
[2020-12-08 08:28] VITALS: BP_SYST 118; BP_SYST 96; BP_DIAS 55; BP_DIAS 65
[2020-12-08] MEDS: MULTIVITAMINS WITH MINERALS, THERAPEUTIC TABLET PO SCH (09:46)
[2020-12-08] MEDS: CloZAPine 100 MG TABLET PO SCH ×2 (09:46→20:08)
[2020-12-08 16:15] VITALS: BP 122/69
[2020-12-08] MEDS: MELATONIN 5 MG TABLET PO SCH (20:08)
[2020-12-08] MEDS: CloZAPine 25 MG TABLET PO SCH (20:08)
[2020-12-08] MEDS: MIRTAZAPINE 30 MG TABLET PO SCH (20:08)
[2020-12-09 00:28] VITALS: BP 117/68
[2020-12-09] MEDS: LITHIUM CARBONATE 300 MG CAPSULE PO SCH ×3 (06:54→16:41)
[2020-12-09 08:41] VITALS: BP 111/49
[2020-12-09] MEDS: MULTIVITAMINS WITH MINERALS, THERAPEUTIC TABLET PO SCH (09:57)
[2020-12-09] MEDS: CloZAPine 100 MG TABLET PO SCH ×2 (09:57→20:54)
[2020-12-09 16:10] VITALS: BP 101/62
[2020-12-09] MEDS: MELATONIN 5 MG TABLET PO SCH (20:54)
[2020-12-09] MEDS: MIRTAZAPINE 30 MG TABLET PO SCH (20:54)
[2020-12-09] MEDS: CloZAPine 25 MG TABLET PO SCH (20:55)
[2020-12-09] MEDS: ZOLPIDEM TARTRATE 10 MG TABLET PO PRN (23:10)
[2020-12-10 00:38] VITALS: BP 112/68
[2020-12-10] MEDS: LITHIUM CARBONATE 300 MG CAPSULE PO SCH ×2 (06:25→11:35)
[2020-12-10 08:17] VITALS: BP 126/60
[2020-12-10 08:30] LABS: COVID AG,FIA SOURCE NASOPHARYNGEAL
[2020-12-10] MEDS: CloZAPine 100 MG TABLET PO SCH (08:48)
[2020-12-10] MEDS: MULTIVITAMINS WITH MINERALS, THERAPEUTIC TABLET PO SCH (08:49)
[2020-12-10] MEDS ORDERED: OMEG-135 PO (10:39)
[2020-12-10] MEDS ORDERED: CLOZ100T31 PO ×2 (10:39)
[2020-12-10] MEDS ORDERED: NALT50TA PO (10:39)
[2020-12-10] MEDS ORDERED: MELA5TAB40 PO (10:39)
[2020-12-10] MEDS ORDERED: LITH300C3 PO (10:39)
[2020-12-10] MEDS ORDERED: MIRT30 PO (10:39)
[2020-12-10] MEDS ORDERED: CLOZ25TA4 PO (10:39)
== END 2020-12-10 13:00 | disposition home or self-care (01) | DRG 885 ==
LOC: B2S 13:31
PROVIDERS: ADMIT Psychiatry & Neurology Psychiatry; ATTEND Psychiatry & Neurology Psychiatry
DX: F20.0 Paranoid schizophrenia (principal); G47.00 Insomnia, unspecified; K59.00 Constipation, unspecified; E66.9 Obesity, unspecified; Z20.822 Contact with and (suspected) exposure to COVID-19; Z55.9 Problems related to education and literacy, unspecified; Z59.9 Problem related to housing and economic circumstances, unspecified; Z65.3 Problems related to other legal circumstances; Z79.899 Other long term (current) drug therapy; Z68.30 Body mass index [BMI] 30.0-30.9, adult
CPT/HCPCS: 80053; 80061; 80159; 80178; 80307; 83036; 84439; 84443; 85025; Q9967

== ENCOUNTER 2020-12-14 11:12 | Inpatient (IN) | payer OTHER, MEDICAID ==
[~2020-12-14] VITALS: Ht 172.7 cm; Wt 94.4 kg
[~2020-12-14 11:12] MED LIST changes: +CLOZ25TA4 PO; -GABA-1181 PO; -GABA-1201 PO; +LITH300C3 PO; +NALT50TA PO; -OLAN5TAB30 PO
[2020-12-14 12:01] LABS: BASOPHILS % (AUTO) 0.1 % (0.0-2.0); EOSINOPHILS % (AUTO) 0 % (1.0-6.0); HEMATOCRIT 39.8 % (36-46); HEMOGLOBIN 13.1 g/dL (12.0-16.0); LYMPHOCYTES % (AUTO) 8.6 % (22.0-44.0); MEAN CORPUSCULAR HEMOGLOBIN 28.7 pg (26.0-34.0); MEAN CORPUSCULAR VOLUME 87 fL (80-100); MONOCYTES # (AUTO) 0.4 K/uL (0.1-1.0); MONOCYTES % (AUTO) 3.8 % (2.0-9.0); NEUTROPHILS # (AUTO) 10.2 K/uL (1.8-7.7); PLATELET COUNT (AUTO) 236 K/uL (150-450); RED BLOOD CELL COUNT(AUTO) 4.57 MIL/uL (4.00-5.20); RED CELL DISTRIBUTION WIDTH 14.8 % (11.5-14.5)
[2020-12-14 12:03] LABS: NEUTROPHILS % (AUTO) 87.5 % (40.0-70.0)
[2020-12-14 12:19] LABS: ANION GAP 12 mmol/L (8-16); CALCIUM, TOTAL 8.5 mg/dL (8.8-10.5); CARBON DIOXIDE 22 mmol/L (22-29); CHLORIDE 106 mmol/L (98-107); GLOMERULAR FILTR. RATE CALC 53 mL/min (>60); GLUCOSE,RANDOM 125 mg/dL (70-110); POTASSIUM 3.6 mmol/L (3.5-5.1); SODIUM SERUM 140 mmol/L (136-145); UREA NITROGEN, BLOOD 10 mg/dL (7-18)
[2020-12-14 12:23] LABS: ALANINE AMINOTRANSFERASE 37 U/L (12-78); ALBUMIN 3.4 g/dL (3.4-5.0); ALKALINE PHOSPHATASE 99 U/L (46-116); ASPARTATE AMINOTRANSFERASE 14 U/L (15-37); BILIRUBIN,TOTAL 0.2 mg/dL (0.1-1.0); TOTAL PROTEIN, SERUM 7.1 g/dL (6.4-8.2)
[2020-12-14] MEDS ORDERED: HydrOXYzine PAMOATE 50 MG CAPSULE PO PRN (13:15)
[2020-12-14] MEDS ORDERED: PROMETHAZINE HCL 25 MG TABLET PO PRN ×2 (13:15→14:45)
[2020-12-14] MEDS ORDERED: GuaiFENesin/D-METHORPHAN [SUGAR-FREE] 200-20MG/10 ML SYRUP UDCUP PO PRN (13:15)
[2020-12-14] MEDS ORDERED: ZOLPIDEM TARTRATE 10 MG TABLET PO PRN (13:15)
[2020-12-14 13:41] LABS: COVID AG,FIA SOURCE NASOPHARYNGEAL
[2020-12-14] MEDS ORDERED: MAG HYDROX/AL HYDROX/SIMETH ES 30 ML SUSPENSION UDCUP PO PRN (14:45)
[2020-12-14] MEDS ORDERED: LOPERAMIDE HCL 2 MG CAPSULE PO PRN (14:45)
[2020-12-14 16:28] VITALS: BP 119/69
[2020-12-14] MEDS: THIAMINE 100 MG TABLET PO SCH (17:00)
[2020-12-14] MEDS ORDERED: HALOPERIDOL LACTATE 5 MG/ML VIAL ONE (17:00)
[2020-12-14] MEDS ORDERED: DiphenhydrAMINE HCL 50 MG/ML VIAL ONE (17:00)
[2020-12-14] MEDS: LITHIUM CARBONATE 300 MG CAPSULE PO SCH (17:00)
[2020-12-14] MEDS ORDERED: LORazepam 2 MG/ML VIAL ONE (17:00)
[2020-12-14] MEDS ORDERED: LORazepam 2 MG/ML VIAL IM ONE (17:15)
[2020-12-14] MEDS ORDERED: HALOPERIDOL LACTATE 5 MG/ML VIAL IM ONE (17:15)
[2020-12-14] MEDS ORDERED: DiphenhydrAMINE HCL 50 MG/ML VIAL IM ONE (17:15)
[2020-12-14] MEDS: MIRTAZAPINE 30 MG TABLET PO SCH (20:28)
[2020-12-14] MEDS: CloZAPine 100 MG TABLET PO SCH (20:28)
[2020-12-14] MEDS: MELATONIN 5 MG TABLET PO SCH (20:31)
[2020-12-15 00:18] VITALS: BP 110/64
[2020-12-15 08:24] VITALS: BP 133/86
[2020-12-15] MEDS ORDERED: OMEGA-3/DHA/EPA/FISH OIL 1,000 MG CAPSULE PO SCH (09:00)
[2020-12-15] MEDS: CloZAPine 100 MG TABLET PO SCH ×2 (09:21→20:53)
[2020-12-15] MEDS: NALTREXONE HCL 50 MG TABLET PO SCH (09:22)
[2020-12-15] MEDS: FOLIC ACID 1 MG TABLET PO SCH (09:23)
[2020-12-15] MEDS: MULTIVITAMINS WITH MINERALS, THERAPEUTIC TABLET PO SCH (09:23)
[2020-12-15] MEDS: LITHIUM CARBONATE 300 MG CAPSULE PO SCH ×3 (09:24→16:24)
[2020-12-15] MEDS: THIAMINE 100 MG TABLET PO SCH ×2 (09:24→16:24)
[2020-12-15 16:11] VITALS: BP 114/62
[2020-12-15] MEDS: MIRTAZAPINE 30 MG TABLET PO SCH (20:53)
[2020-12-15] MEDS: MELATONIN 5 MG TABLET PO SCH (20:53)
[2020-12-16 03:19] VITALS: BP 112/64
[2020-12-16 08:15] VITALS: BP 124/62
[2020-12-16] MEDS: MULTIVITAMINS WITH MINERALS, THERAPEUTIC TABLET PO SCH (08:58)
[2020-12-16] MEDS: THIAMINE 100 MG TABLET PO SCH ×2 (08:58→16:11)
[2020-12-16] MEDS: LITHIUM CARBONATE 300 MG CAPSULE PO SCH ×3 (08:58→16:11)
[2020-12-16] MEDS: FOLIC ACID 1 MG TABLET PO SCH (08:59)
[2020-12-16] MEDS: NALTREXONE HCL 50 MG TABLET PO SCH (08:59)
[2020-12-16] MEDS: CloZAPine 100 MG TABLET PO SCH ×2 (09:02→20:06)
[2020-12-16 16:16] VITALS: BP 113/76
[2020-12-16] MEDS: MELATONIN 5 MG TABLET PO SCH (20:06)
[2020-12-16] MEDS: MIRTAZAPINE 30 MG TABLET PO SCH (20:06)
[2020-12-16] MEDS: MAGNESIUM HYDROXIDE SUSPENSION 30 ML UDCUP PO PRN (20:07)
[2020-12-17 00:56] VITALS: BP 111/65
[2020-12-17 08:10] VITALS: BP 132/77
[2020-12-17] MEDS: FOLIC ACID 1 MG TABLET PO SCH (08:36)
[2020-12-17] MEDS: LITHIUM CARBONATE 300 MG CAPSULE PO SCH ×3 (08:36→16:10)
[2020-12-17] MEDS: CloZAPine 100 MG TABLET PO SCH ×2 (08:36→20:16)
[2020-12-17] MEDS: MULTIVITAMINS WITH MINERALS, THERAPEUTIC TABLET PO SCH (08:36)
[2020-12-17] MEDS: THIAMINE 100 MG TABLET PO SCH ×2 (08:36→16:10)
[2020-12-17] MEDS: NALTREXONE HCL 50 MG TABLET PO SCH (10:09)
[2020-12-17 16:10] VITALS: BP 112/64
[2020-12-17] MEDS: OLANZapine 5 MG RAPDIS TABLET PO PRN (17:09)
[2020-12-17] MEDS: MIRTAZAPINE 30 MG TABLET PO SCH (20:16)
[2020-12-17] MEDS: MELATONIN 5 MG TABLET PO SCH (20:16)
[2020-12-18 00:54] VITALS: BP 104/63
[2020-12-18 08:29] VITALS: BP 118/66
[2020-12-18] MEDS: THIAMINE 100 MG TABLET PO SCH ×2 (08:52→16:19)
[2020-12-18] MEDS: LITHIUM CARBONATE 300 MG CAPSULE PO SCH ×3 (08:52→16:19)
[2020-12-18] MEDS: NALTREXONE HCL 50 MG TABLET PO SCH (08:52)
[2020-12-18] MEDS: MULTIVITAMINS WITH MINERALS, THERAPEUTIC TABLET PO SCH (08:52)
[2020-12-18] MEDS: FOLIC ACID 1 MG TABLET PO SCH (08:52)
[2020-12-18] MEDS: CloZAPine 100 MG TABLET PO SCH ×2 (08:52→20:07)
[2020-12-18 16:31] VITALS: BP 105/60
[2020-12-18] MEDS: MELATONIN 5 MG TABLET PO SCH (20:07)
[2020-12-18] MEDS: MIRTAZAPINE 30 MG TABLET PO SCH (20:07)
[2020-12-19 00:41] VITALS: BP 112/61
[2020-12-19 07:33] LABS: COVID AG,FIA SOURCE NASOPHARYNGEAL
[2020-12-19 08:08] VITALS: BP 109/55
[2020-12-19] MEDS: CloZAPine 100 MG TABLET PO SCH ×2 (08:13→20:12)
[2020-12-19] MEDS: LITHIUM CARBONATE 300 MG CAPSULE PO SCH ×3 (08:13→16:49)
[2020-12-19] MEDS: THIAMINE 100 MG TABLET PO SCH ×2 (08:13→16:49)
[2020-12-19] MEDS: NALTREXONE HCL 50 MG TABLET PO SCH (08:13)
[2020-12-19] MEDS: FOLIC ACID 1 MG TABLET PO SCH (08:13)
[2020-12-19] MEDS: MULTIVITAMINS WITH MINERALS, THERAPEUTIC TABLET PO SCH (08:13)
[2020-12-19 16:20] VITALS: BP 104/68
[2020-12-19] MEDS: MIRTAZAPINE 30 MG TABLET PO SCH (20:12)
[2020-12-19] MEDS: MELATONIN 5 MG TABLET PO SCH (20:12)
[2020-12-20 00:02] VITALS: BP 106/64
[2020-12-20] MEDS: THIAMINE 100 MG TABLET PO SCH ×2 (08:30→16:33)
[2020-12-20] MEDS: MULTIVITAMINS WITH MINERALS, THERAPEUTIC TABLET PO SCH (08:31)
[2020-12-20] MEDS: FOLIC ACID 1 MG TABLET PO SCH (08:31)
[2020-12-20] MEDS: NALTREXONE HCL 50 MG TABLET PO SCH (08:31)
[2020-12-20] MEDS: LITHIUM CARBONATE 300 MG CAPSULE PO SCH ×3 (08:31→16:32)
[2020-12-20] MEDS: CloZAPine 100 MG TABLET PO SCH ×2 (08:31→20:19)
[2020-12-20 11:04] VITALS: BP 104/64
[2020-12-20] MEDS: ACETAMINOPHEN 325 MG TABLET PO PRN ×2 (12:06→18:45)
[2020-12-20 16:12] VITALS: BP 117/64
[2020-12-20] MEDS: OLANZapine 5 MG RAPDIS TABLET PO PRN (17:07)
[2020-12-20] MEDS: MELATONIN 5 MG TABLET PO SCH (20:19)
[2020-12-20] MEDS: MIRTAZAPINE 30 MG TABLET PO SCH (20:19)
[2020-12-21 00:59] VITALS: BP 112/64
[2020-12-21 07:54] LABS: BASOPHILS % (AUTO) 0.6 % (0.0-2.0); EOSINOPHILS % (AUTO) 0 % (1.0-6.0); HEMATOCRIT 41.8 % (36-46); HEMOGLOBIN 13.8 g/dL (12.0-16.0); LYMPHOCYTES % (AUTO) 27.7 % (22.0-44.0); MEAN CORPUSCULAR HEMOGLOBIN 29.2 pg (26.0-34.0); MEAN CORPUSCULAR VOLUME 88 fL (80-100); MONOCYTES # (AUTO) 0.3 K/uL (0.1-1.0); MONOCYTES % (AUTO) 4.2 % (2.0-9.0); NEUTROPHILS # (AUTO) 4.9 K/uL (1.8-7.7); NEUTROPHILS % (AUTO) 67.5 % (40.0-70.0); PLATELET COUNT (AUTO) 208 K/uL (150-450); RED BLOOD CELL COUNT(AUTO) 4.73 MIL/uL (4.00-5.20); RED CELL DISTRIBUTION WIDTH 15.1 % (11.5-14.5)
[2020-12-21] MEDS: CloZAPine 100 MG TABLET PO SCH ×2 (08:29→20:54)
[2020-12-21] MEDS: THIAMINE 100 MG TABLET PO SCH ×2 (08:29→16:34)
[2020-12-21] MEDS: LITHIUM CARBONATE 300 MG CAPSULE PO SCH ×3 (08:29→16:34)
[2020-12-21] MEDS: NALTREXONE HCL 50 MG TABLET PO SCH (08:29)
[2020-12-21] MEDS: MULTIVITAMINS WITH MINERALS, THERAPEUTIC TABLET PO SCH (08:29)
[2020-12-21] MEDS: FOLIC ACID 1 MG TABLET PO SCH (08:31)
[2020-12-21 08:43] VITALS: BP 123/65
[2020-12-21 16:06] VITALS: BP 112/61
[2020-12-21] MEDS: MIRTAZAPINE 30 MG TABLET PO SCH (20:54)
[2020-12-21] MEDS: MELATONIN 5 MG TABLET PO SCH (20:54)
[2020-12-22 00:10] VITALS: BP 107/61
[2020-12-22 08:27] VITALS: BP 117/54
[2020-12-22] MEDS: NALTREXONE HCL 50 MG TABLET PO SCH (08:27)
[2020-12-22] MEDS: LITHIUM CARBONATE 300 MG CAPSULE PO SCH ×3 (08:27→16:37)
[2020-12-22] MEDS: THIAMINE 100 MG TABLET PO SCH ×2 (08:27→16:37)
[2020-12-22] MEDS: CloZAPine 100 MG TABLET PO SCH ×2 (08:27→20:42)
[2020-12-22] MEDS: FOLIC ACID 1 MG TABLET PO SCH (08:27)
[2020-12-22] MEDS: MULTIVITAMINS WITH MINERALS, THERAPEUTIC TABLET PO SCH (08:27)
[2020-12-22 16:19] VITALS: BP 118/62
[2020-12-22] MEDS: MELATONIN 5 MG TABLET PO SCH (20:41)
[2020-12-22] MEDS: MIRTAZAPINE 30 MG TABLET PO SCH (20:42)
[2020-12-23 06:13] VITALS: BP 105/61
[2020-12-23 08:19] VITALS: BP 108/60
[2020-12-23] MEDS: CloZAPine 100 MG TABLET PO SCH ×2 (08:43→20:59)
[2020-12-23] MEDS: MULTIVITAMINS WITH MINERALS, THERAPEUTIC TABLET PO SCH (08:44)
[2020-12-23] MEDS: THIAMINE 100 MG TABLET PO SCH ×2 (08:44→16:53)
[2020-12-23] MEDS: NALTREXONE HCL 50 MG TABLET PO SCH (08:44)
[2020-12-23] MEDS: LITHIUM CARBONATE 300 MG CAPSULE PO SCH ×3 (08:44→16:52)
[2020-12-23] MEDS: FOLIC ACID 1 MG TABLET PO SCH (08:44)
[2020-12-23 16:27] VITALS: BP 126/66
[2020-12-23] MEDS: MELATONIN 5 MG TABLET PO SCH (20:59)
[2020-12-23] MEDS: MIRTAZAPINE 30 MG TABLET PO SCH (20:59)
[2020-12-24 00:16] VITALS: BP 105/62
[2020-12-24 08:25] VITALS: BP 110/64
[2020-12-24] MEDS: MULTIVITAMINS WITH MINERALS, THERAPEUTIC TABLET PO SCH (10:17)
[2020-12-24] MEDS: FOLIC ACID 1 MG TABLET PO SCH (10:17)
[2020-12-24] MEDS: THIAMINE 100 MG TABLET PO SCH (10:17)
[2020-12-24] MEDS: NALTREXONE HCL 50 MG TABLET PO SCH (10:19)
[2020-12-24] MEDS: LITHIUM CARBONATE 300 MG CAPSULE PO SCH ×2 (10:19→16:13)
[2020-12-24] MEDS: CloZAPine 100 MG TABLET PO SCH ×2 (10:19→20:59)
[2020-12-24 16:22] VITALS: BP 115/61
[2020-12-24] MEDS: MELATONIN 5 MG TABLET PO SCH (20:59)
[2020-12-24] MEDS: MIRTAZAPINE 30 MG TABLET PO SCH (20:59)
[2020-12-25 06:12] VITALS: BP 103/61
[2020-12-25 08:03] VITALS: BP 118/72
[2020-12-25] MEDS: CloZAPine 100 MG TABLET PO SCH ×2 (09:17→20:30)
[2020-12-25] MEDS: MULTIVITAMINS WITH MINERALS, THERAPEUTIC TABLET PO SCH (09:17)
[2020-12-25] MEDS: NALTREXONE HCL 50 MG TABLET PO SCH (09:18)
[2020-12-25 16:02] VITALS: BP 123/74
[2020-12-25] MEDS: MELATONIN 5 MG TABLET PO SCH (20:30)
[2020-12-25] MEDS: MIRTAZAPINE 30 MG TABLET PO SCH (20:31)
[2020-12-26 00:14] VITALS: BP 123/74
[2020-12-26 08:11] VITALS: BP 110/53
[2020-12-26] MEDS: CloZAPine 100 MG TABLET PO SCH ×2 (08:46→20:11)
[2020-12-26] MEDS: MULTIVITAMINS WITH MINERALS, THERAPEUTIC TABLET PO SCH (08:46)
[2020-12-26] MEDS: NALTREXONE HCL 50 MG TABLET PO SCH (08:46)
[2020-12-26 09:40] LABS: COVID AG,FIA SOURCE NASOPHARYNGEAL
[2020-12-26 16:08] VITALS: BP 124/74
[2020-12-26] MEDS: MELATONIN 5 MG TABLET PO SCH (20:11)
[2020-12-26] MEDS: MIRTAZAPINE 30 MG TABLET PO SCH (20:11)
[2020-12-27 00:10] VITALS: BP 108/62
[2020-12-27 06:25] VITALS: BP 105/60
[2020-12-27] MEDS: MAGNESIUM HYDROXIDE SUSPENSION 30 ML UDCUP PO PRN (06:32)
[2020-12-27 08:12] VITALS: BP 106/71
[2020-12-27] MEDS: MULTIVITAMINS WITH MINERALS, THERAPEUTIC TABLET PO SCH (09:00)
[2020-12-27] MEDS: NALTREXONE HCL 50 MG TABLET PO SCH (09:00)
[2020-12-27] MEDS: CloZAPine 100 MG TABLET PO SCH ×2 (09:00→20:10)
[2020-12-27 16:54] VITALS: BP 110/63
[2020-12-27] MEDS: MIRTAZAPINE 30 MG TABLET PO SCH (20:09)
[2020-12-27] MEDS: MELATONIN 5 MG TABLET PO SCH (20:09)
[2020-12-28 05:17] VITALS: BP 106/68
[2020-12-28 07:31] LABS: BASOPHILS % (AUTO) 0.5 % (0.0-2.0); EOSINOPHILS % (AUTO) 0 % (1.0-6.0); HEMATOCRIT 41.2 % (36-46); HEMOGLOBIN 13.5 g/dL (12.0-16.0); LYMPHOCYTES # (AUTO) 2.6 K/uL (1.0-4.8); LYMPHOCYTES % (AUTO) 28.2 % (22.0-44.0); MEAN CORPUSCULAR HEMOGLOBIN 29.1 pg (26.0-34.0); MEAN CORPUSCULAR HGB CONC 32.8 G/dL (31.0-37.0); MEAN CORPUSCULAR VOLUME 89 fL (80-100); MONOCYTES # (AUTO) 0.4 K/uL (0.1-1.0); MONOCYTES % (AUTO) 4.3 % (2.0-9.0); NEUTROPHILS # (AUTO) 6.1 K/uL (1.8-7.7); PLATELET COUNT (AUTO) 217 K/uL (150-450); RED BLOOD CELL COUNT(AUTO) 4.64 MIL/uL (4.00-5.20); RED CELL DISTRIBUTION WIDTH 15.2 % (11.5-14.5)
[2020-12-28 08:06] VITALS: BP 108/66
[2020-12-28] MEDS: NALTREXONE HCL 50 MG TABLET PO SCH (08:57)
[2020-12-28] MEDS: CloZAPine 100 MG TABLET PO SCH ×2 (08:57→20:30)
[2020-12-28] MEDS: MULTIVITAMINS WITH MINERALS, THERAPEUTIC TABLET PO SCH (08:58)
[2020-12-28 16:38] VITALS: BP 122/68
[2020-12-28] MEDS: MELATONIN 5 MG TABLET PO SCH (20:30)
[2020-12-28] MEDS: MIRTAZAPINE 30 MG TABLET PO SCH (20:30)
[2020-12-29 02:27] VITALS: BP 124/70
[2020-12-29 08:36] VITALS: BP 113/74
[2020-12-29] MEDS: CloZAPine 100 MG TABLET PO SCH ×2 (09:26→20:24)
[2020-12-29] MEDS: NALTREXONE HCL 50 MG TABLET PO SCH (09:26)
[2020-12-29] MEDS: MULTIVITAMINS WITH MINERALS, THERAPEUTIC TABLET PO SCH (09:27)
[2020-12-29] MEDS ORDERED: NALT50TA PO (14:56)
[2020-12-29] MEDS ORDERED: CLOZ100T31 PO ×2 (14:56)
[2020-12-29] MEDS ORDERED: OMEG-135 PO (14:56)
[2020-12-29] MEDS ORDERED: MELA5TAB40 PO (14:56)
[2020-12-29] MEDS ORDERED: MIRT30 PO (14:56)
[2020-12-29 16:03] VITALS: BP 121/64
[2020-12-29] MEDS: OLANZapine 5 MG RAPDIS TABLET PO PRN (17:08)
[2020-12-29] MEDS: MELATONIN 5 MG TABLET PO SCH (20:24)
[2020-12-29] MEDS: MIRTAZAPINE 30 MG TABLET PO SCH (20:25)
[2020-12-30 00:04] VITALS: BP 128/63
[2020-12-30 08:22] VITALS: BP 121/85
[2020-12-30] MEDS: NALTREXONE HCL 50 MG TABLET PO SCH (08:29)
[2020-12-30] MEDS: CloZAPine 100 MG TABLET PO SCH (08:29)
[2020-12-30] MEDS: MULTIVITAMINS WITH MINERALS, THERAPEUTIC TABLET PO SCH (08:29)
[2020-12-30] MEDS: OLANZapine 5 MG RAPDIS TABLET PO PRN (09:23)
[2020-12-30] MEDS ORDERED: LORazepam 0.5 MG TABLET PO ONE (09:30)
[2020-12-30] MEDS ORDERED: CLOZ100T32 PO ×2 (09:33)
== END 2020-12-30 11:50 | disposition home or self-care (01) | DRG 885 ==
LOC: EMS 11:12 → B2S 13:35 → B2X 12-24 18:39
PROVIDERS: ADMIT Psychiatry & Neurology Psychiatry; ATTEND Psychiatry & Neurology Psychiatry
DX: F25.9 Schizoaffective disorder, unspecified (principal); F60.0 Paranoid personality disorder; E66.9 Obesity, unspecified; Z20.822 Contact with and (suspected) exposure to COVID-19; Z55.9 Problems related to education and literacy, unspecified; Z59.9 Problem related to housing and economic circumstances, unspecified; Z63.9 Problem related to primary support group, unspecified; Z65.3 Problems related to other legal circumstances; Z68.31 Body mass index [BMI] 31.0-31.9, adult; Z79.899 Other long term (current) drug therapy
CPT/HCPCS: 80053; 80159; 80178; 85025; 87081; 99285; G0480; J1200; J1630; J2060; Q9967

== ENCOUNTER → 2021-02-16 | Outpatient (CLI) | payer MEDICAID ==
[~2021-02-16] MED LIST changes: +CLOZ100T32 PO; -CLOZ25TA4 PO; -LITH300C3 PO; -MIRT-89 PO
[2021-02-16 14:35] LABS: BASOPHILS % (AUTO) 1.3 % (0.0-2.0); EOSINOPHILS % (AUTO) 0 % (1.0-6.0); HEMATOCRIT 42.2 % (36-46); HEMOGLOBIN 13.6 g/dL (12.0-16.0); LYMPHOCYTES # (AUTO) 1.7 K/uL (1.0-4.8); LYMPHOCYTES % (AUTO) 20.9 % (22.0-44.0); MEAN CORPUSCULAR HEMOGLOBIN 28.2 pg (26.0-34.0); MEAN CORPUSCULAR HGB CONC 32.3 G/dL (31.0-37.0); MEAN CORPUSCULAR VOLUME 88 fL (80-100); MONOCYTES # (AUTO) 0.3 K/uL (0.1-1.0); MONOCYTES % (AUTO) 3.3 % (2.0-9.0); NEUTROPHILS # (AUTO) 6.1 K/uL (1.8-7.7); NEUTROPHILS % (AUTO) 74.5 % (40.0-70.0); PLATELET COUNT (AUTO) 229 K/uL (150-450); RED BLOOD CELL COUNT(AUTO) 4.82 MIL/uL (4.00-5.20); RED CELL DISTRIBUTION WIDTH 15.3 % (11.5-14.5)
== END | disposition home or self-care (01) ==
LOC: LABPV 13:04
PROVIDERS: ATTEND Psychiatry & Neurology Psychiatry
DX: F25.1 Schizoaffective disorder, depressive type (principal)
CPT/HCPCS: 85025